=== PATIENT | female | born 1990 | race Caucasian/White ===

== ENCOUNTER 2020-03-12 05:28 | Emergency (ER) | payer OTHER ==
[~2020-03-12] VITALS: Ht 167.6 cm; Wt 99.0 kg
[2020-03-12] MEDS ORDERED: IBUPROFEN 600MG TABLET PO ONE (06:45)
[2020-03-12 08:28] VITALS: BP 130/99
== END 2020-03-12 08:29 | disposition home or self-care (01) ==
LOC: ER 05:28
DX: M79.661 Pain in right lower leg (principal)
CPT/HCPCS: 93971; 99284